=== PATIENT | female | born 1965 | race Caucasian/White ===

== ENCOUNTER → 2017-07-13 | Outpatient (CLI) | payer MEDICARE, OTHER ==
[~2017-07-13] MED LIST: ALBU90I INH; ALBU90OI INH; ALPR1; ALPR1 PO; ATOR20 PO; AZIT250 PO; CEFU250 PO; CETI10; CETI5; CIPR500 PO; CYCL10; DOCU100 PO; DULO60 PO; FLUO20; FLUO20 PO; GABA100; HYDACE5 PO; HYDACE7.5L PO; HYDCHL25; HYDCHL25 PO; IBUP800; IBUP800 PO; ISRA5 PO; META800 PO; METF500; METO100ER PO; METO50 PO; METO50ER PO; NAPR550 PO; NIAC500ER PO; OLME20-12.; OMEP20ER PO; OXYACE5T; OXYACE5T PO; PARO20; PIOG15 PO; PRED10 PO; PRIM50 PO; PROM25; PROM25 PO; SIMV10 PO; TOBR.3OPSO OP; VENL150ER; VENL150ER PO; VENL37.5ER; VENL75
[2017-07-14 11:27] LABS: Candida species (DNA Probe) Negative (NEGATIVE); G. vaginalis (DNA Probe) Negative (NEGATIVE); T. vaginalis (DNA Probe) Negative (NEGATIVE)
== END ==
LOC: LAB 12:58
PROVIDERS: Registered Nurse Community Health
DX: N76.0 Acute vaginitis (principal)
CPT/HCPCS: 87070; 87205; 87480; 87510; 87660

== ENCOUNTER → 2017-08-30 | Outpatient (CLI) | payer MEDICARE, OTHER | LOC: LAB 16:08 | DX: N76.0 Acute vaginitis (principal) | CPT/HCPCS: 87070; 87205 ==

== ENCOUNTER → 2017-11-22 | Outpatient (CLI) | payer MEDICARE, OTHER | LOC: LAB 12:10 → LAB SHORT 12:10 | DX: N76.0 Acute vaginitis (principal) | CPT/HCPCS: 87070; 87205 ==

== ENCOUNTER → 2018-08-13 | Outpatient (CLI) | payer MEDICARE, OTHER | LOC: LAB 11:33 → LAB SHORT 11:33 | DX: N94.89 Other specified conditions associated with female genital organs and menstrual cycle (principal) | CPT/HCPCS: 87529 ==